=== PATIENT | female | born 1945 ===

== ENCOUNTER 2016-10-25 06:30 | Inpatient (IN) | payer MEDICARE ==
[2016-10-25] MEDS ORDERED: Propofol 10 mg/ml Inj (20 ML) ONE (13:18)
[2016-10-25] MEDS ORDERED: Lidocaine Hydrochloride 5 ML INJ ONE (13:18)
[2016-10-25] MEDS ORDERED: Midazolam 2 MG/2 ML VIAL ONE (13:18)
[2016-10-25] MEDS ORDERED: Rocuronium 10 mg/ml (5 ml) ONE (13:18)
[2016-10-25] MEDS ORDERED: Morphine 1 mg/ml preservative-free Inj(Duramorph) ONE (13:23)
[2016-10-25] MEDS ORDERED: Bacitracin Ointment 30 GM TUBE ONE (13:24)
[2016-10-25] MEDS ORDERED: Bupivacaine 0.5% Inj(30mL) ONE (13:24)
[2016-10-25] MEDS ORDERED: Sodium Chloride 0.9% 20 ML IV ONE (13:24)
[2016-10-25] MEDS ORDERED: EPINEPHrine 1 mg/ml (1:1000) Inj ONE (13:24)
[2016-10-25] MEDS ORDERED: Absorbable Gelatin Sponge Size 100 ONE (13:24)
[2016-10-25] MEDS ORDERED: Thrombin Topical 5,000 IU Spray Kit ONE (13:24)
[2016-10-25] MEDS ORDERED: Lactated Ringer's 1,000 ML IV ONE ×2 (14:40→20:00)
[2016-10-25] MEDS ORDERED: Sodium Chloride 0.9% 1,000 ML IV ONE (14:50)
[2016-10-25] MEDS ORDERED: Sodium Chloride 0.9% Inj (10mL) IV ONE (15:52)
[2016-10-25] MEDS ORDERED: Desflurane Inhalation Anesthetic Liq (240 ml) ONE (15:53)
[2016-10-25] MEDS ORDERED: ePHEDrine 50 mg/ml Inj ONE (15:57)
--- NOTE | 2016-10-25 17:04 | PCM.SURG1 ---
Surgeon's Initial Post Op Note - Surgeon's Notes Surgeon: Alo Ceballos MD Gear Lapper: JEAN MARIE Grubbs Type of Anesthesia: General Endo Pre-Operative Diagnosis: Left Knee Osteoarthritis Operative Findings: see op report Post-Operative Diagnosis: same as pre-op dx Operation Performed: L TKR Specimen/Specimens Removed: Left knee bone and soft tissue Estimated Blood Loss: EBL {In ML}: 200 Date of Surgery/Procedure: 10/25/16 Time of Surgery/Procedure: 15:30
[2016-10-25] MEDS ORDERED: Oxycodone/Acetaminophen 5/325 mg Tab PO PRN (17:07)
--- NOTE | 2016-10-25 17:44 | RAD ---
PROCEDURE: Left Knee Radiographs. HISTORY: Pain. COMPARISON: None. FINDINGS: BONES: Left TKR. Hardware appears intact. Surrounding postoperative changes include infiltration and subcutaneous air. Anterior metallic skin closure ezra. JOINTS: Normal. No osteoarthritis. JOINT EFFUSION: None. OTHER FINDINGS: None. IMPRESSION: Status post left TKR with surrounding expected postoperative changes.
[2016-10-25] MEDS ORDERED: Insulin Regular 100 units/ml SC ONE (18:03)
[2016-10-25] MEDS: HYDROmorphone 0.5 mg/0.5 ml ISec IVP PRN ×3 (18:05→19:38)
[2016-10-25] MEDS ORDERED: ceFAZolin 1 GM in Sodium Chloride 0.9% 100 ML IVPB ONE (23:00)
--- NOTE | 2016-10-25 23:02 | OP ---
PROCEDURE DATE: 10/25/2016 ATTENDING PHYSICIAN: Alo Ceballos MD ONCOLOGY PATIENT NAVIGATOR: Radha Wesley PA-C PREOPERATIVE DIAGNOSIS: Left knee osteoarthritis. POSTOPERATIVE DIAGNOSIS: Left knee osteoarthritis. PROCEDURE: Left total knee replacement. IMPLANTS: [employer] size 3 femur, size 2 tibial baseplate, 13 mm polyethylene insert, 29 mm patella. ESTIMATED BLOOD LOSS: 100 mL. TYPE OF ANESTHESIA: General. COMPLICATIONS: None. HISTORY: The patient with prolonged history of left knee pain progressively getting worse despite extensive conservative management, which included activity modification, injections, anti-inflammatory modification and physical therapy. X-rays had revealed advanced arthritis. Patient was indicated for total knee replacement due to continued pain and limited mobility. I had a detailed discussion with the patient in the office explaining the nature of the surgery, alternatives of surgery, risks and benefits, rehabilitation protocol and surgical markings. Risks of surgery include but not limited to continued pain, lack of motion, infection, vascular injury, DVT / PE, nerve injury including peroneal nerve dysfunction, reflex sympathetic dystrophy, compartment syndrome, unforeseen medical and/or anesthesia complications, limb loss, and even . The patient expressed an understanding of the risks and possible benefits of the procedure, and is also aware of the alternatives to surgery. On the day of the surgery, the patient was admitted to pre-operative holding area. A laterality sheet was completed confirming the correct operative site. The correct surgical knee was marked in the holding area and informed consent was signed from the patient. Once again, I reviewed the risks and benefits of the surgery with the patient in detail. These risks include but are not limited to continued pain, lack of motion, infection, vascular injury, DVT / PE, nerve injury including peroneal nerve dysfunction, reflex sympathetic dystrophy, symptomatic hardware, need for further procedure and surgeries, instability, iatrogenic fractures, compartment syndrome, unforeseen medical and/or anesthesia complications, limb loss, and even . The patient expressed an understanding of the risks and possible benefits of the procedure, also aware of the alternatives to surgery and signed the informed consent. The patient was transported to the operating room and placed in the supine position, general anesthesia was obtained. Exam under anesthesia revealed 5 degree flexion contracture, range of motion 5-100, stable to varus and valgus stress. A padded tourniquet was applied to patient's operative thigh and appropriate prophylactic antibiotics were given. The operative leg was draped and prepped in standard sterile manner. Timeout was completed, confirming patient's left knee to be the correct operative site. Using an Esmarch, the extremity was exsanguinated and tourniquet was inflated to 350 mmHg. The surgical incision markings were made using patella border, tibial tubercle, patella and quadriceps tendon. Using a 10 blade, a midline incision was made. Skin dissection was taken until the prepatellar fascia was identified and the corners of the patellar tendon were marked for proper closure at the end of the procedure. Using a fresh 10 blade, a medial parapatellar arthrotomy was performed. The knee was exposed in the standard manner. The deep MCL was elevated for exposure, medial and lateral menisci were removed, ACL and PCL were also transected. The tibia was subluxed anteriorly. Planned tibial cut was made with power saw, using extra-medullary guide, perpendicular to mechanical axis of the tibia. After the cut was made, the alignment was also checked and was found to be appropriate. Tibial cut surface was measured with trial base plate and it was noted that size 2 tibial baseplate was provide sufficient coverage without overhang. Tibial component was externally rotated and marked. Next, the knee was placed into 90 degrees of flexion. A drill hole was made within the femoral notch anterior to PCL insertion for placement of intramedullary femoral fatemeh. Intramedullary femoral fatemeh was inserted within the femoral canal and planned distal femoral cut was made. After the cut, knee was brought into full extension. Spacer blocks were used to check the extension balancing both in full extension and 30 degrees of flexion. It was found that 13 mm trial spacer block allowed full extension with symmetric varus and valgus balancing. Next we proceed with Patella resurfacing. [place] patella width was 24 mm. Using the free-hand technique the arthritic patella surface was resected. Patella was sized using the guide and it was noted that Patella button size 29 mm. Patella dome button would be appropriate for the patient. Next the size of femoral component was determined using the posterior referencing guide. It was noted that a size 3 femur would be appropriate for this patient without causing any significant notching. A 4 x 1 cutting block was placed and flexion gap balancing was checked. The flexion gap was found to be symmetric to the extension gap. Anterior and posterior condyle, anterior and posterior chamfer cuts were made. Next, appropriate size box cut for femoral component was prepared using the guide. The femoral trial component was impacted onto the distal femur. Appropriate size tibial trial component was also placed on the cut surface of the tibia. Using the drill and punch, keel for tibial implant was prepared. Trial tibial tray was secured onto the tibia using pins. Different size trial polyethylene inserts were secured on to the trial tibial tray to critically assess the following parametes: Full range of motion, extension and flexion gap balancing, mid-flexion stability, anterior and posterior drawer, and patellar tracking. All parameter were found to be satisfactory with 13 mm insert. All the trial components were removed. Implants were opened on the back table. Cement was mixed and we proceed with cement fixation of the implants. Tibial tray, femoral component and patellar dome button were secured with cement. Polyethylene insert was secured onto the tibial tray using locking mechanism. The knee was reduced and brought into full extension. Cement was allowed to harden until final component fixation. Knee was taken through the final range of motion for stability testing, and found to be satisfactory. Upon final cement fixation of all components, it was noted that there is a slight lateral maltracking of the patella. Decision was made to address the patellar maltracking with lateral release. Using the electrocautery, limited lateral prepatellar arthrotomy was performed, which improved patellar tracking. 60 cc of custom cocktail mixture was injected into posterior capsule, MCL, LCL, quadriceps tendon, and patellar tendon. Wound was copiously irrigated with sterile antibiotic solution using pulse lavage. Arthrotomy was closed using heavy suture and wound was closed in standard manner. Patient was extubated, transferred to stretcher and taken to the recovery room. Post-operative instructions were provided, physical therapy consult was requested along with DVT prophylaxis and appropriate pain medications. During this procedure, I was assisted by Radha Wesley PA-C, who assisted in positioning the patient on the operating room table as well as transferring the patient from the operating room table to the recovery room stretcher. In addition, Radha Wesley PA-C, assisted me during the actual operative procedure by positioning, protecting critical neurovascular structures, exposure of the joint, and proper positioning of the implants. The presence of Radha Wesley PA-C, as my operative medical practice assistant was medically necessary to ensure the utmost safety of the patient in the pre, intra-, and post-operative periods. Due to the patient's morbid obesity, this procedure was more difficult than a standard knee arthroscopy. This required extra time during prepping and draping, as well as an extended operative time. The length of the case was prolonged due to these factors by *------*. Due to the patient's previous procedure(s) performed in this area, this procedure was more difficult than a standard knee arthroscopy. This required extra time during prepping and draping, as well as an extended operative time. Because of the added complexity of the revision nature of this procedure, the length of the case was prolonged by 50%. Alo Ceballos MD
[2016-10-25] MEDS: oxyCODONE 20 mg ER Tab (oxyCONTIN) PO SCH (23:11)
[2016-10-26] MEDS ORDERED: Glucagon Recombinant 1 mg Inj IM PRN (05:34)
[2016-10-26] MEDS ORDERED: Dextrose 50% SYRINGE Inj (50 ml) IV PRN (05:34)
[2016-10-26] MEDS: Insulin Regular 100 units/ml SC SCH ×4 (06:38→22:36)
[2016-10-26 06:40] LABS: BASO % 0.3 % (0.0-2.0); HEMOGLOBIN 10.8 g/dL (12.0-16.0); LYMPH # 1.3 K/uL (1.0-4.3); LYMPH % 8.6 % (20.0-40.0); MEAN CELL VOLUME 93.1 fl (81.0-99.0); MEAN CORPUSCULAR HEMOGLOBIN 30.4 pg (27.0-31.0); MEAN CORPUSCULAR HGB CONC 32.7 g/dL (33.0-37.0); MEAN PLATELET VOLUME 9.4 fl (7.2-11.7); MONO # 1.7 K/uL (0.0-0.8); MONO % 10.8 % (0.0-10.0); NEUT # 12.5 K/uL (1.8-7.0); NEUT % 80.3 % (50.0-75.0); NRBC % 0.1 % (0.0-0.0); PLATELET COUNT 198 K/uL (130-400); RBC 3.55 Mil/uL (3.80-5.20); RED CELL DISTRIBUTION WIDTH 14.3 % (11.5-14.5); WHITE BLOOD COUNT 15.6 K/uL (4.8-10.8)
[2016-10-26 06:46] LABS: BLOOD UREA NITROGEN 23 mg/dl (7-17); CALCIUM 8.3 mg/dL (8.4-10.2); GFR AFRICAN-AMERICAN > 60; GFR NON-AFRICAN AMERICAN 55
[2016-10-26] MEDS ORDERED: ceFAZolin 1 GM in Sodium Chloride 0.9% 100 ML IVPB ONE (07:00)
[2016-10-26 08:21] LABS: LYMPHOCYTE 5 % (20-50); MONOCYTE 7 % (0-10); NEUTROPHIL 88 % (42-75); TOTAL CELLS COUNTED 100
[2016-10-26 08:22] LABS: PLATELET ESTIMATE NORMAL (NORMAL)
[2016-10-26] MEDS: oxyCODONE 20 mg ER Tab (oxyCONTIN) PO SCH ×2 (08:42→21:26)
[2016-10-26] MEDS ORDERED: Benzocaine/Menthol (Cepacol) Lozenge PO PRN (09:15)
[2016-10-26] MEDS: Enoxaparin 30 mg Syringe SC SCH ×2 (09:39→21:29)
--- NOTE | 2016-10-26 13:17 | CP.PCM.PN ---
Subjective - Date & Time of Evaluation Date of Evaluation: 10/26/16 Time of Evaluation: 08:10 - Subjective Subjective: S/P LTKR POD#1 Pt seen and examined at bedside, comfortable in bed Pt c/o mild left knee pain Pt denies any SOB, chest pain, N/V/D, numbness/tingling LLE Objective - Vital Signs/Intake and Output Vital Signs (last 24 hours): Temp Pulse Resp BP Pulse Ox 98 F 65 18 140/67 96 10/26/16 08:22 10/26/16 08:43 10/26/16 08:22 10/26/16 10:06 10/26/16 08:22 - Medications Medications: Current Medications Acetaminophen (Tylenol 325mg Tab) 325 mg PO Q4 PRN PRN Reason: pain1-3 Last Admin: 10/26/16 12:25 Dose: 325 mg Amlodipine Besylate (Norvasc) 10 mg PO DAILY [facility] Last Admin: 10/26/16 08:43 Dose: 10 mg Atorvastatin Calcium (Lipitor) 10 mg PO HS [facility] Benzocaine/Menthol (Cepacol Sore Throat) 1 jada PO Q3 PRN PRN Reason: Sore Throat Last Admin: 10/26/16 09:38 Dose: 1 jada Calcium Carbonate (Oscal) 500 mg PO DAILY [facility] Last Admin: 10/26/16 08:44 Dose: 500 mg Celecoxib (Celebrex) 200 mg PO Q12 [facility] Last Admin: 10/26/16 08:43 Dose: 200 mg Dextrose (Dextrose 50% Inj) 0 ml IV STAT PRN; Protocol PRN Reason: Hyglycemia Protocol Dextrose (Glutose 15) 0 gm PO ONCE PRN; Protocol PRN Reason: Hypoglycemia Protocol Docusate Sodium (Colace) 100 mg PO TID [facility] Last Admin: 10/26/16 12:21 Dose: 100 mg Enoxaparin Sodium (Lovenox) 30 mg SC Q12 [facility] PRN Reason: Protocol Last Admin: 10/26/16 09:39 Dose: 30 mg Glucagon (Glucagen Diagnostic Kit) 0 mg IM STAT PRN; Protocol PRN Reason: Hypoglycemia Protocol Hydrochlorothiazide (Hydrodiuril) 25 mg PO DAILY [facility] Last Admin: 10/26/16 08:44 Dose: 25 mg Hydromorphone HCl (Dilaudid) 0.5 mg IVP Q5M PRN PRN Reason: Pain, moderate (4-7) Last Admin: 10/25/16 19:38 Dose: 0.5 mg Insulin Human Regular (Humulin R) 0 units SC ACHS LISA PRN Reason: Protocol Last Admin: 10/26/16 12:21 Dose: 4 units Ketorolac Tromethamine (Toradol) 15 mg IM Q8 [facility] Stop: 10/27/16 05:00 Last Admin: 10/26/16 08:41 Dose: 15 mg Losartan Potassium (Cozaar) 25 mg PO DAILY [facility] Last Admin: 10/26/16 08:44 Dose: 25 mg Metformin HCl (Glucophage) 500 mg PO BIDWM [facility] Last Admin: 10/26/16 08:43 Dose: 500 mg Ondansetron HCl (Zofran Odt) 4 mg PO Q8H PRN PRN Reason: Nausea/Vomiting Oxycodone HCl (Oxycontin Extended Release Tab) 20 mg PO Q12 [facility] Stop: 11/08/16 23:59 Last Admin: 10/26/16 08:42 Dose: 20 mg Oxycodone/Acetaminophen (Percocet 5/325 Mg Tab) 1 tab PO Q4 PRN PRN Reason: pain4-6 Stop: 10/28/16 17:08 - Labs Labs: 10/26/16 05:30 10/26/16 05:30 - Constitutional Appears: Well, No Acute Distress - Respiratory Exam Respiratory Exam: Clear to Ausculation Bilateral, NORMAL BREATHING PATTERN - Cardiovascular Exam Cardiovascular Exam: REGULAR RHYTHM, RRR - Extremities Exam Additional comments: LLE: Knee dressing C/D/I Calves soft and compressible b/l, +ttp left calf N/V intact distally Distal pulses wnl No foot drop Assessment and Plan - Assessment and Plan (Free Text) Assessment: 71 yo F s/p LTKR POD#1 Plan: 71 yo F s/p LTKR POD#1 Pain Control DVT ppx F/U b/l LE US r/o DVT LLE PT/OT WBAT LLE Incentive Spirometer F/U labs Continue current management Discussed with Dr. Ceballos
--- NOTE | 2016-10-26 13:30 | CP.PCM.CON ---
History of Present Illness - History of Present Illness History of Present Illness: 71 y/o F with PMHx of HTN, DM type 2, HLD, and OA admitted for left total knee replacement by Dr. Ceballos. Patient s/p LTKR POD #1. Patient was seen and examined this morning with attending Patient doing well, denies pain at this evaluation, and reports good pain control with meds Denies Cp, SOB, N/V, abdominal pain or other complains. Review of Systems - Review of Systems All systems: reviewed and no additional remarkable complaints except (as per HPI ) Past Patient History - Past Medical History & Family History Past Medical History?: Yes - Past Social History Smoking Status: Never Smoked - CARDIAC Hx Cardiac Disorders: Yes Hx Hypercholesterolemia: Yes Hx Hypertension: Yes - PULMONARY Hx Respiratory Disorders: No - NEUROLOGICAL Hx Neurological Disorder: Yes Hx Transient Ischemic Attacks (TIA): Yes Other/Comment: STROKE - HEENT Hx HEENT Problems: No - RENAL Hx Chronic Kidney Disease: No - ENDOCRINE/METABOLIC Hx Endocrine Disorders: Yes Hx Diabetes Mellitus Type 1: Yes Hx Diabetes Mellitus Type 2: Yes - HEMATOLOGICAL/ONCOLOGICAL Hx Blood Disorders: No Hx Anemia: No Hx Blood Transfusions: No Hx Cancer: Yes (LEFT BREAST CANCER-WITH RADIATION) Other/Comment: Hx: radiation - INTEGUMENTARY Hx Dermatological Problems: No - MUSCULOSKELETAL/RHEUMATOLOGICAL Hx Musculoskeletal Disorders: Yes Hx Arthritis: Yes Hx Back Pain: No Hx Falls: No Hx Fractures: Yes (right ankle) Hx Osteoarthritis: Yes - GASTROINTESTINAL Hx Gastrointestinal Disorders: No - GENITOURINARY/GYNECOLOGICAL Hx Genitourinary Disorders: No - PSYCHIATRIC Hx Psychophysiologic Disorder: No Hx Emotional Abuse: No Hx Physical Abuse: No Hx Substance Use: No - SURGICAL HISTORY Hx Surgeries: Yes Hx Breast Biopsy: Yes Hx Open Reduction Internal Fixation: Yes (right ankle) Hx Orthopedic Surgery: Yes (rt foot has a fatemeh from sx 1987) Other/Comment: LEFT BREAST BIOPSY;RIGHT LEG SURGERY-BROKEN - ANESTHESIA Hx Anesthesia: Yes Hx Anesthesia Reactions: No Hx Malignant Hyperthermia: No Has any member of the family had a problem w/ anesthesia?: No Meds Allergies/Adverse Reactions: Allergies Allergy/AdvReac Type Severity Reaction Status Date / Time No Known Allergies Allergy Verified 10/14/15 20:29 - Medications Medications: Current Medications Acetaminophen (Tylenol 325mg Tab) 325 mg PO Q4 PRN PRN Reason: pain1-3 Last Admin: 10/26/16 12:25 Dose: 325 mg Amlodipine Besylate (Norvasc) 10 mg PO DAILY [facility] Last Admin: 10/26/16 08:43 Dose: 10 mg Atorvastatin Calcium (Lipitor) 10 mg PO HS [facility] Benzocaine/Menthol (Cepacol Sore Throat) 1 jada PO Q3 PRN PRN Reason: Sore Throat Last Admin: 10/26/16 09:38 Dose: 1 jada Calcium Carbonate (Oscal) 500 mg PO DAILY [facility] Last Admin: 10/26/16 08:44 Dose: 500 mg Celecoxib (Celebrex) 200 mg PO Q12 [facility] Last Admin: 10/26/16 08:43 Dose: 200 mg Dextrose (Dextrose 50% Inj) 0 ml IV STAT PRN; Protocol PRN Reason: Hyglycemia Protocol Dextrose (Glutose 15) 0 gm PO ONCE PRN; Protocol PRN Reason: Hypoglycemia Protocol Docusate Sodium (Colace) 100 mg PO TID [facility] Last Admin: 10/26/16 12:21 Dose: 100 mg Enoxaparin Sodium (Lovenox) 30 mg SC Q12 [facility] PRN Reason: Protocol Last Admin: 10/26/16 09:39 Dose: 30 mg Glucagon (Glucagen Diagnostic Kit) 0 mg IM STAT PRN; Protocol PRN Reason: Hypoglycemia Protocol Hydrochlorothiazide (Hydrodiuril) 25 mg PO DAILY [facility] Last Admin: 10/26/16 08:44 Dose: 25 mg Hydromorphone HCl (Dilaudid) 0.5 mg IVP Q5M PRN PRN Reason: Pain, moderate (4-7) Last Admin: 10/25/16 19:38 Dose: 0.5 mg Insulin Human Regular (Humulin R) 0 units SC [facility] PRN Reason: Protocol Last Admin: 10/26/16 12:21 Dose: 4 units Ketorolac Tromethamine (Toradol) 15 mg IM Q8 [facility] Stop: 10/27/16 05:00 Last Admin: 10/26/16 08:41 Dose: 15 mg Losartan Potassium (Cozaar) 25 mg PO DAILY [facility] Last Admin: 10/26/16 08:44 Dose: 25 mg Metformin HCl (Glucophage) 500 mg PO BIDWM [facility] Last Admin: 10/26/16 08:43 Dose: 500 mg Ondansetron HCl (Zofran Odt) 4 mg PO Q8H PRN PRN Reason: Nausea/Vomiting Oxycodone HCl (Oxycontin Extended Release Tab) 20 mg PO Q12 [facility] Stop: 11/08/16 23:59 Last Admin: 10/26/16 08:42 Dose: 20 mg Oxycodone/Acetaminophen (Percocet 5/325 Mg Tab) 1 tab PO Q4 PRN PRN Reason: pain4-6 Stop: 10/28/16 17:08 Physical Exam - Constitutional Appears: No Acute Distress - ENT Exam ENT Exam: Mucous Membranes Moist - Respiratory Exam Respiratory Exam: Clear to Auscultation Bilateral, NORMAL BREATHING PATTERN - Cardiovascular Exam Cardiovascular Exam: REGULAR RHYTHM, +S1, +S2 - GI/Abdominal Exam GI & Abdominal Exam: Normal Bowel Sounds, Soft. absent: Distended, Firm, Tenderness - Extremities Exam Extremities exam: Positive for: normal inspection. Negative for: calf tenderness, pedal edema - Neurological Exam Neurological exam: Alert, Oriented x3 - Skin Skin Exam: Dry, Intact, Normal Color Results - Vital Signs Recent Vital Signs: Last Vital Signs Temp 98 F 10/26/16 08:22 Pulse 65 10/26/16 08:43 Resp 18 10/26/16 08:22 BP 140/67 10/26/16 10:06 Pulse Ox 96 10/26/16 08:22 - Labs Result Diagrams: 10/26/16 05:30 10/26/16 05:30 Labs: Laboratory Results - last 24 hr 10/25/16 10/25/16 10/25/16 07:15 17:54 19:02 WBC RBC Hgb Hct MCV MCH MCHC RDW Plt Count MPV Neut % (Auto) Lymph % (Auto) [place] % (Auto) Eos % (Auto) Baso % (Auto) Neut # Lymph # [place] # Eos # Baso # Neutrophils % (Manual) Lymphocytes % (Manual) Monocytes % (Manual) Platelet Estimate Sodium Potassium Chloride Carbon Dioxide Anion Gap BUN Creatinine Est GFR ( Amer) Est GFR (Non-Af Amer) POC Glucose (mg/dL) 299 H 276 H Random Glucose Calcium Blood Type O POSITIVE Antibody Screen Negative Crossmatch See Detail BBK History Checked Patient has bt 10/25/16 10/26/16 10/26/16 20:49 05:22 05:30 WBC 15.6 H RBC 3.55 L Hgb 10.8 L Hct 33.1 L MCV 93.1 MCH 30.4 MCHC 32.7 L RDW 14.3 Plt Count 198 MPV 9.4 Neut % (Auto) 80.3 H Lymph % (Auto) 8.6 L [place] % (Auto) 10.8 H Eos % (Auto) 0.0 Baso % (Auto) 0.3 Neut # 12.5 H Lymph # 1.3 [place] # 1.7 H Eos # 0.0 Baso # 0.0 Neutrophils % (Manual) 88 H Lymphocytes % (Manual) 5 L Monocytes % (Manual) 7 Platelet Estimate Normal Sodium Potassium Chloride Carbon Dioxide Anion Gap BUN Creatinine Est GFR ( Amer) Est GFR (Non-Af Amer) POC Glucose (mg/dL) 242 H 218 H Random Glucose Calcium Blood Type Antibody Screen Crossmatch BBK History Checked 10/26/16 10/26/16 05:30 10:57 WBC RBC Hgb Hct MCV MCH MCHC RDW Plt Count MPV Neut % (Auto) Lymph % (Auto) [place] % (Auto) Eos % (Auto) Baso % (Auto) Neut # Lymph # [place] # Eos # Baso # Neutrophils % (Manual) Lymphocytes % (Manual) Monocytes % (Manual) Platelet Estimate Sodium 139 Potassium 3.7 Chloride 101 Carbon Dioxide 25 Anion Gap 16 BUN 23 H Creatinine 1.0 Est GFR ( Amer) > 60 Est GFR (Non-Af Amer) 55 POC Glucose (mg/dL) 281 H Random Glucose 187 H Calcium 8.3 L Blood Type Antibody Screen Crossmatch BBK History Checked Assessment & Plan - Assessment and Plan (Free Text) Assessment: 71 y/o F s/p LTKR POD #1. Plan: S/p LTKR POD #1 -c/w pain control -PT evaluation and Tx -f/u CBC, BMP in AM -c/w Ancef x 3 doses, then consider DC -consider post-operative DVT prophylaxis. F/u Ortho recommendation DM type 2 c/w home medications f/u accucheck daily start diabetic diet as tolerated HTN -c/w home meds -C/w BP monitoring Hyperlipidemia -c/w home meds DVT prophylaxis SCDs for now - Date & Time Date: 10/26/16 Time: 09:00
--- NOTE | 2016-10-26 18:05 | US ---
PROCEDURE: Bilateral lower extremity venous duplex Doppler. HISTORY: calf pain COMPARISON: None available. TECHNIQUE: Bilateral common femoral, superficial femoral, popliteal and posterior tibial veins were evaluated. Flow was assessed with color Doppler, compressibility, assessment of phasic flow and augmentation response. FINDINGS: COMMON FEMORAL VEIN: Right CFV: Unremarkable. Left CFV: Unremarkable. SUPERFICIAL FEMORAL VEIN: Right SFV: Unremarkable. Left SFV: Unremarkable. POPLITEAL VEIN: Right Popliteal: Unremarkable. Left Popliteal: Unremarkable. POSTERIOR TIBIAL VEIN: Right PTV: Unremarkable. Left PTV: Unremarkable. OTHER FINDINGS: None. IMPRESSION: No evidence of deep venous thrombosis.
[2016-10-27 06:07] LABS: CALCIUM 8.6 mg/dL (8.4-10.2)
[2016-10-27 06:14] LABS: BASO # 0.1 K/uL (0.0-0.2); BASO % 0.5 % (0.0-2.0); EOS # 0.1 K/uL (0.0-0.7); EOS % 1.4 % (0.0-4.0); HEMOGLOBIN 9.6 g/dL (12.0-16.0); LYMPH # 2.2 K/uL (1.0-4.3); LYMPH % 22.9 % (20.0-40.0); MEAN CELL VOLUME 92.7 fl (81.0-99.0); MEAN CORPUSCULAR HEMOGLOBIN 30.8 pg (27.0-31.0); MEAN CORPUSCULAR HGB CONC 33.2 g/dL (33.0-37.0); MEAN PLATELET VOLUME 9.4 fl (7.2-11.7); MONO # 1.1 K/uL (0.0-0.8); MONO % 11.9 % (0.0-10.0); NEUT % 63.3 % (50.0-75.0); RBC 3.14 Mil/uL (3.80-5.20); RED CELL DISTRIBUTION WIDTH 14.4 % (11.5-14.5); WHITE BLOOD COUNT 9.4 K/uL (4.8-10.8)
[2016-10-27] MEDS: Insulin Regular 100 units/ml SC SCH ×3 (06:46→16:34)
[2016-10-27] MEDS: oxyCODONE 20 mg ER Tab (oxyCONTIN) PO SCH (08:30)
[2016-10-27] MEDS: Enoxaparin 30 mg Syringe SC SCH (08:31)
[2016-10-27] MEDS ORDERED: Potassium Chloride 20 mEq ER Tab PO ONE (09:40)
[2016-10-27] MEDS ORDERED: Sodium Chloride 0.9% 1,000 ML IV SCH (09:45)
--- NOTE | 2016-10-27 16:20 | CP.PCM.PN ---
Subjective - Date & Time of Evaluation Date of Evaluation: 10/27/16 Time of Evaluation: 09:05 - Subjective Subjective: patient seen and examined with attending still reporting pain, but is controlled with medications passing flatus, but has not yet had a BM tolerating PO Afebrile Denies Cp, SOB, N/V, abdominal pain, numbness/tingling LLE Objective - Vital Signs/Intake and Output Vital Signs (last 24 hours): Temp Pulse Resp BP Pulse Ox 98.4 F 79 18 100/63 93 L 10/27/16 07:39 10/27/16 07:39 10/27/16 07:39 10/27/16 07:39 10/27/16 07:39 - Medications Medications: Current Medications Acetaminophen (Tylenol 325mg Tab) 325 mg PO Q4 PRN PRN Reason: pain1-3 Last Admin: 10/26/16 12:25 Dose: 325 mg Amlodipine Besylate (Norvasc) 10 mg PO DAILY [facility] Last Admin: 10/27/16 08:33 Dose: 10 mg Atorvastatin Calcium (Lipitor) 10 mg PO HS [facility] Last Admin: 10/26/16 22:38 Dose: Not Given Benzocaine/Menthol (Cepacol Sore Throat) 1 jada PO Q3 PRN PRN Reason: Sore Throat Last Admin: 10/26/16 09:38 Dose: 1 jada Calcium Carbonate (Oscal) 500 mg PO DAILY [facility] Last Admin: 10/27/16 08:33 Dose: 500 mg Celecoxib (Celebrex) 200 mg PO Q12 [facility] Last Admin: 10/27/16 08:31 Dose: 200 mg Dextrose (Dextrose 50% Inj) 0 ml IV STAT PRN; Protocol PRN Reason: Hyglycemia Protocol Dextrose (Glutose 15) 0 gm PO ONCE PRN; Protocol PRN Reason: Hypoglycemia Protocol Docusate Sodium (Colace) 100 mg PO TID [facility] Last Admin: 10/27/16 12:01 Dose: 100 mg Enoxaparin Sodium (Lovenox) 30 mg SC Q12 [facility] PRN Reason: Protocol Last Admin: 10/27/16 08:31 Dose: 30 mg Famotidine (Pepcid) 20 mg PO Q12 [facility] Last Admin: 10/27/16 08:33 Dose: 20 mg Glucagon (Glucagen Diagnostic Kit) 0 mg IM STAT PRN; Protocol PRN Reason: Hypoglycemia Protocol Hydrochlorothiazide (Hydrodiuril) 25 mg PO DAILY [facility] Last Admin: 10/27/16 08:33 Dose: 25 mg Hydromorphone HCl (Dilaudid) 0.5 mg IVP Q5M PRN PRN Reason: Pain, moderate (4-7) Last Admin: 10/25/16 19:38 Dose: 0.5 mg Sodium Chloride (Sodium Chloride 0.9%) 1,000 mls @ 75 mls/hr IV .[id number] [facility] Stop: 10/28/16 09:41 Last Admin: 10/27/16 11:57 Dose: 75 mls/hr Insulin Human Regular (Humulin R) 0 units SC ACHS [facility] PRN Reason: Protocol Last Admin: 10/27/16 11:56 Dose: 4 units Ketorolac Tromethamine (Toradol) 15 mg IVP Q6 PRN PRN Reason: Pain, moderate (4-7) Last Admin: 10/26/16 20:13 Dose: 15 mg Losartan Potassium (Cozaar) 25 mg PO DAILY [facility] Last Admin: 10/27/16 08:32 Dose: 25 mg Metformin HCl (Glucophage) 500 mg PO BIDWM [facility] Last Admin: 10/27/16 08:32 Dose: 500 mg Ondansetron HCl (Zofran Inj) 4 mg IVP Q6 PRN PRN Reason: Nausea/Vomiting Oxycodone HCl (Oxycontin Extended Release Tab) 20 mg PO Q12 [facility] Stop: 11/08/16 23:59 Last Admin: 10/27/16 08:30 Dose: 20 mg Oxycodone/Acetaminophen (Percocet 5/325 Mg Tab) 1 tab PO Q4 PRN PRN Reason: pain4-6 Stop: 10/28/16 17:08 Last Admin: 10/26/16 13:45 Dose: 1 tab - Labs Labs: 10/27/16 04:35 10/27/16 04:35 - Additional Findings Additional findings: Constitutional Appears: No Acute Distress - ENT Exam ENT Exam: Mucous Membranes Moist - Respiratory Exam Respiratory Exam: Clear to Auscultation Bilateral, NORMAL BREATHING PATTERN - Cardiovascular Exam Cardiovascular Exam: REGULAR RHYTHM, +S1, +S2 - GI/Abdominal Exam GI & Abdominal Exam: Normal Bowel Sounds, Soft. absent: Distended, Firm, Tenderness - Extremities Exam Extremities exam: Positive for: normal inspection. Negative for: calf tenderness, pedal edema - Neurological Exam Neurological exam: Alert, Oriented x3 - Skin Skin Exam: Dry, Intact, Normal Color Assessment and Plan - Assessment and Plan (Free Text) Assessment: 71 y/o F s/p LTKR POD #2 Plan: S/p LTKR POD #1 -c/w pain control -c/w stool softener -PT evaluation and Tx - CBC: no leukocytosis, H/H: slightly decreased 9.6/29.1 -dupplex US of LE showed no evidence of DVT DM type 2 c/w home medications f/u accucheck daily c/w diabetic diet HTN -c/w home meds -C/w BP monitoring Hyperlipidemia -c/w home meds DVT prophylaxis SCDs c/w lovenox 30 mg SC BID
[2016-10-27 16:29] VITALS: BP 113/68; PULSE 84; RESP 17; TEMP 98.3; O2SAT 92
[2016-10-27 21:02] VITALS: BMI 39.6
== END 2016-10-27 18:42 | DRG 470 ==
LOC: H.OPSURG 06:30 → H.MEDSURG1 17:17
PROVIDERS: ADMIT Family Medicine; ATTEND Family Medicine
PROC: 0SRD0J9 Replacement of Left Knee Joint with Synthetic Substitute, Cemented, Open Approach (ICD-10-PCS; principal; 2016-10-25 13:45)
DX: M17.12 Unilateral primary osteoarthritis, left knee (principal); E11.9 Type 2 diabetes mellitus without complications; E66.01 Morbid (severe) obesity due to excess calories; I10 Essential (primary) hypertension; Z68.39 Body mass index [BMI] 39.0-39.9, adult; E78.5 Hyperlipidemia, unspecified; E78.00 Pure hypercholesterolemia, unspecified; Z86.73 Personal history of transient ischemic attack (TIA), and cerebral infarction without residual deficits; Z79.4 Long term (current) use of insulin; Z85.3 Personal history of malignant neoplasm of breast; Z92.3 Personal history of irradiation

== ENCOUNTER 2016-10-27 15:03 | Inpatient (IN) | payer MEDICARE ==
[2016-10-27 18:57] VITALS: BMI 39.6
[2016-10-27] MEDS ORDERED: Benzocaine/Menthol (Cepacol) Lozenge PO PRN (21:44)
[2016-10-27] MEDS ORDERED: Dextrose 50% SYRINGE Inj (50 ml) IVP PRN (21:45)
[2016-10-27] MEDS ORDERED: Glucagon Recombinant 1 mg Inj IM ONE (21:47)
[2016-10-27] MEDS: Insulin Regular 100 units/ml SC SCH (23:02)
[2016-10-27] MEDS: Enoxaparin 30 mg Syringe SC SCH (23:10)
[2016-10-27] MEDS: Oxycodone/Acetaminophen 5/325 mg Tab PO PRN (23:10)
[2016-10-28 02:49] VITALS: RESP 20
[2016-10-28] MEDS: Insulin Regular 100 units/ml SC SCH ×4 (07:16→22:37)
[2016-10-28] MEDS ORDERED: METFORMIN 500 MG PO SCH (08:00)
[2016-10-28] MEDS: Enoxaparin 30 mg Syringe SC SCH ×2 (08:32→21:28)
[2016-10-28] MEDS: oxyCODONE 20 mg ER Tab (oxyCONTIN) PO SCH ×2 (08:36→21:33)
--- NOTE | 2016-10-28 08:58 | CP.PCM.PN ---
Subjective - Date & Time of Evaluation Date of Evaluation: 10/28/16 Time of Evaluation: 08:30 - Subjective Subjective: S/P LTKR POD#3 Pt seen and examined at bedside, comfortable in bed Pt c/o mild left knee pain, well controlled with pain meds Pt denies any SOB, chest pain, N/V/D, numbness/tingling LLE Objective - Vital Signs/Intake and Output Vital Signs (last 24 hours): Temp Pulse Resp BP Pulse Ox 98.2 F 79 20 117/63 88 L 10/28/16 08:03 10/28/16 08:30 10/28/16 08:03 10/28/16 08:30 10/28/16 08:03 - Medications Medications: Current Medications Acetaminophen (Tylenol 325mg Tab) 325 mg PO Q4 PRN PRN Reason: pain1-3 Amlodipine Besylate (Norvasc) 10 mg PO DAILY [facility] Last Admin: 10/28/16 08:30 Dose: 10 mg Atorvastatin Calcium (Lipitor) 10 mg PO HS [facility] Last Admin: 10/27/16 23:09 Dose: 10 mg Benzocaine/Menthol (Cepacol Sore Throat) 1 jada PO Q3 PRN PRN Reason: Sore Throat Calcium Carbonate (Oscal) 500 mg PO DAILY [facility] Last Admin: 10/28/16 08:29 Dose: 500 mg Celecoxib (Celebrex) 200 mg PO Q12 [facility] Last Admin: 10/28/16 08:29 Dose: 200 mg Dextrose (Dextrose 50% Inj) 50 ml IVP ONCE PRN PRN Reason: Hypoglycemia Dextrose (Glutose 15) 15 gm PO ONCE PRN PRN Reason: Hypoglycemia Docusate Sodium (Colace) 100 mg PO TID [facility] Last Admin: 10/28/16 08:32 Dose: 100 mg Enoxaparin Sodium (Lovenox) 30 mg SC Q12 [facility] PRN Reason: Protocol Last Admin: 10/28/16 08:32 Dose: 30 mg Famotidine (Pepcid) 20 mg PO Q12 [facility] Last Admin: 10/28/16 08:31 Dose: 20 mg Hydrochlorothiazide (Hydrodiuril) 25 mg PO DAILY [facility] Last Admin: 10/28/16 08:32 Dose: 25 mg Insulin Human Regular (Humulin R) 0 units SC ACHS [facility] PRN Reason: Protocol Last Admin: 10/28/16 07:16 Dose: 1 unit Losartan Potassium (Cozaar) 25 mg PO DAILY [facility] Last Admin: 10/28/16 08:30 Dose: 25 mg Metformin HCl (Glucophage) 500 mg PO BIDWM [facility] Last Admin: 10/28/16 08:29 Dose: 500 mg Oxycodone HCl (Oxycontin Extended Release Tab) 20 mg PO Q12 [facility] Last Admin: 10/28/16 08:36 Dose: 20 mg Oxycodone/Acetaminophen (Percocet 5/325 Mg Tab) 1 tab PO Q4 PRN PRN Reason: pain4-6 Stop: 10/30/16 21:21 Last Admin: 10/27/16 23:10 Dose: 1 tab Sennosides (Senokot Tab) 17.2 mg PO HS [facility] - Constitutional Appears: Well, No Acute Distress - Respiratory Exam Respiratory Exam: Clear to Ausculation Bilateral, NORMAL BREATHING PATTERN - Cardiovascular Exam Cardiovascular Exam: REGULAR RHYTHM, RRR - Extremities Exam Additional comments: LLE: Knee dressing C/D/I Calves soft and compressible b/l, mild ttp left calf N/V intact distally Distal pulses wnl No foot drop Assessment and Plan - Assessment and Plan (Free Text) Assessment: 71 yo F s/p LTKR POD#3 Plan: S/P LTKR POD#3 Pain Control DVT ppx US b/l LE neg for any DVT Incentive Spirometer PT/OT Continue current management Discussed with Dr. Ceballos
[2016-10-28] MEDS ORDERED: HYDROCHLOROTHIAZIDE 25 MG PO SCH (09:00)
[2016-10-28] MEDS ORDERED: [UNRECOGNIZED DRUG - OTHER] PO SCH (09:00)
--- NOTE | 2016-10-28 09:49 | CP.PCM.HP ---
History of Present Illness - History of Present Illness History of Present Illness: This is a 71 y/o female admitted from the medical floor after a right TKR. Post op period was unremarkable. patient has a hx of HTN DM 2 and hyperlipid She has been suffering from progressive knee pain for sometime. She is currently on po meds for DM 2. Venous US of lower extremities the other day was normal. Present on Admission - Present on Admission Any Indicators Present on Admission: No History of Uncontrolled Diabetes: Yes Urinary Catheter: No Decubitus Ulcer Present: No Review of Systems - Musculoskeletal Musculoskeletal: Abnormal Gait, Joint Swelling Past Patient History - Past Medical History & Family History Past Medical History?: Yes - Past Social History Smoking Status: Never Smoked - CARDIAC Hx Cardiac Disorders: Yes Hx Hypercholesterolemia: Yes Hx Hypertension: Yes - PULMONARY Hx Respiratory Disorders: No - NEUROLOGICAL Hx Neurological Disorder: Yes Hx Transient Ischemic Attacks (TIA): Yes Other/Comment: STROKE - HEENT Hx HEENT Problems: No - RENAL Hx Chronic Kidney Disease: No - ENDOCRINE/METABOLIC Hx Endocrine Disorders: Yes Hx Diabetes Mellitus Type 1: Yes Hx Diabetes Mellitus Type 2: Yes - HEMATOLOGICAL/ONCOLOGICAL Hx Blood Disorders: No Hx Anemia: No Hx Blood Transfusions: No Hx Cancer: Yes (LEFT BREAST CANCER-WITH RADIATION) Other/Comment: Hx: radiation - INTEGUMENTARY Hx Dermatological Problems: No - MUSCULOSKELETAL/RHEUMATOLOGICAL Hx Falls: No Hx Osteoarthritis: Yes Hx Unsteady Gait: Yes - GASTROINTESTINAL Hx Gastrointestinal Disorders: No - GENITOURINARY/GYNECOLOGICAL Hx Genitourinary Disorders: No - PSYCHIATRIC Hx Substance Use: No - SURGICAL HISTORY Hx Surgeries: Yes Hx Breast Biopsy: Yes Hx Joint Replacement: Yes (ltkr 10/25/16) Hx Open Reduction Internal Fixation: Yes (right ankle) Hx Orthopedic Surgery: Yes (rt foot has a fatemeh from sx 1987) Other/Comment: LEFT BREAST BIOPSY;RIGHT LEG SURGERY-BROKEN - ANESTHESIA Hx Anesthesia: Yes Hx Anesthesia Reactions: No Hx Malignant Hyperthermia: No Meds Allergies/Adverse Reactions: Allergies Allergy/AdvReac Type Severity Reaction Status Date / Time No Known Allergies Allergy Verified 10/27/16 21:00 Physical Exam - Head Exam Head Exam: NORMAL INSPECTION - Eye Exam Eye Exam: Normal appearance - ENT Exam ENT Exam: Mucous Membranes Moist - Respiratory Exam Respiratory Exam: Clear to Auscultation Bilateral - Cardiovascular Exam Cardiovascular Exam: REGULAR RHYTHM - GI/Abdominal Exam GI & Abdominal Exam: Normal Bowel Sounds - Extremities Exam Extremities exam: Positive for: joint swelling Additional comments: periwound swelling - Neurological Exam Neurological exam: CN II-XII Intact - Psychiatric Exam Psychiatric exam: Normal Mood Results - Vital Signs Recent Vital Signs: Last Vital Signs Temp 98.2 F 10/28/16 08:03 Pulse 79 10/28/16 08:30 Resp 20 10/28/16 08:03 BP 117/63 10/28/16 08:30 Pulse Ox 88 L 10/28/16 08:03 - Labs Result Diagrams: 11/03/16 05:50 11/03/16 05:50 Labs: Laboratory Results - last 24 hr 10/27/16 10/28/16 21:34 06:40 POC Glucose (mg/dL) 189 H 195 H Assessment & Plan (1) Gait difficulty Status: Acute (2) Status post total knee replacement, left Status: Acute (3) Diabetes mellitus type 2 in obese Status: Acute (4) Hypertension Status: Acute (5) Hyperlipidemia Status: Acute - Assessment and Plan (Free Text) Plan: Cont pain meds start Phys therapy accucheck adjust po meds for DM
[2016-10-28] MEDS: Oxycodone/Acetaminophen 5/325 mg Tab PO PRN (15:28)
[2016-10-29] MEDS: Insulin Regular 100 units/ml SC SCH ×4 (06:57→22:19)
[2016-10-29] MEDS: oxyCODONE 20 mg ER Tab (oxyCONTIN) PO SCH ×2 (10:38→22:18)
[2016-10-29] MEDS: Enoxaparin 30 mg Syringe SC SCH ×2 (10:39→22:19)
[2016-10-29] MEDS: Oxycodone/Acetaminophen 5/325 mg Tab PO PRN (13:31)
[2016-10-30] MEDS: Insulin Regular 100 units/ml SC SCH ×4 (07:05→22:12)
[2016-10-30] MEDS: Oxycodone/Acetaminophen 5/325 mg Tab PO PRN (07:08)
[2016-10-30] MEDS: oxyCODONE 20 mg ER Tab (oxyCONTIN) PO SCH ×2 (09:15→22:05)
[2016-10-30] MEDS: Enoxaparin 30 mg Syringe SC SCH ×2 (09:17→22:06)
--- NOTE | 2016-10-30 11:21 | CP.PCM.PN ---
Subjective - Date & Time of Evaluation Date of Evaluation: 10/29/16 Time of Evaluation: 09:30 - Subjective Subjective: Patient remains stable Has minimal pain on the left knee but noted decrease in swelling. Has no feverDoing well with PT. Objective - Vital Signs/Intake and Output Vital Signs (last 24 hours): Temp Pulse Resp BP Pulse Ox 97.7 F 79 20 154/74 H 100 10/30/16 08:28 10/30/16 09:16 10/30/16 08:28 10/30/16 09:16 10/30/16 08:28 - Medications Medications: Current Medications Acetaminophen (Tylenol 325mg Tab) 325 mg PO Q4 PRN PRN Reason: pain1-3 Amlodipine Besylate (Norvasc) 10 mg PO DAILY [facility] Last Admin: 10/30/16 09:16 Dose: 10 mg Atorvastatin Calcium (Lipitor) 10 mg PO HS [facility] Last Admin: 10/29/16 22:19 Dose: 10 mg Benzocaine/Menthol (Cepacol Sore Throat) 1 jada PO Q3 PRN PRN Reason: Sore Throat Calcium Carbonate (Oscal) 500 mg PO DAILY [facility] Last Admin: 10/30/16 09:17 Dose: 500 mg Celecoxib (Celebrex) 200 mg PO Q12 [facility] Last Admin: 10/30/16 09:15 Dose: 200 mg Dextrose (Dextrose 50% Inj) 50 ml IVP ONCE PRN PRN Reason: Hypoglycemia Dextrose (Glutose 15) 15 gm PO ONCE PRN PRN Reason: Hypoglycemia Docusate Sodium (Colace) 100 mg PO TID [facility] Last Admin: 10/30/16 09:15 Dose: 100 mg Enoxaparin Sodium (Lovenox) 30 mg SC Q12 [facility] PRN Reason: Protocol Last Admin: 10/30/16 09:17 Dose: 30 mg Famotidine (Pepcid) 20 mg PO Q12 [facility] Last Admin: 10/30/16 09:16 Dose: 20 mg Hydrochlorothiazide (Hydrodiuril) 25 mg PO DAILY [facility] Last Admin: 10/30/16 09:16 Dose: 25 mg Insulin Human Regular (Humulin R) 0 units SC ACHS [facility] PRN Reason: Protocol Last Admin: 10/30/16 07:05 Dose: 1 unit Losartan Potassium (Cozaar) 25 mg PO DAILY [facility] Last Admin: 10/30/16 09:16 Dose: 25 mg Metformin HCl (Glucophage) 500 mg PO BIDWM [facility] Last Admin: 10/30/16 09:15 Dose: 500 mg Oxycodone HCl (Oxycontin Extended Release Tab) 20 mg PO Q12 [facility] Last Admin: 10/30/16 09:15 Dose: 20 mg Oxycodone/Acetaminophen (Percocet 5/325 Mg Tab) 1 tab PO Q4 PRN PRN Reason: pain4-6 Stop: 10/30/16 21:21 Last Admin: 10/30/16 07:08 Dose: 1 tab Sennosides (Senokot Tab) 17.2 mg PO HS [facility] Last Admin: 10/29/16 22:24 Dose: Not Given - Head Exam Head Exam: NORMAL INSPECTION - Eye Exam Eye Exam: Normal appearance - ENT Exam ENT Exam: Mucous Membranes Moist - Respiratory Exam Respiratory Exam: Clear to Ausculation Bilateral - Cardiovascular Exam Cardiovascular Exam: REGULAR RHYTHM - GI/Abdominal Exam GI & Abdominal Exam: Normal Bowel Sounds - Neurological Exam Neurological Exam: CN II-XII Intact, Oriented x3 Assessment and Plan (1) Status post total knee replacement, left Status: Acute (2) Diabetes mellitus type 2 in obese Status: Acute (3) Gait difficulty Status: Acute (4) Hyperlipidemia Status: Acute (5) Hypertension Status: Acute - Assessment and Plan (Free Text) Plan: on meds cont tx Cont PT adjust po meds.
[2016-10-31] MEDS: Insulin Regular 100 units/ml SC SCH ×2 (07:32→12:37)
[2016-10-31] MEDS: oxyCODONE 20 mg ER Tab (oxyCONTIN) PO SCH ×2 (09:50→20:06)
[2016-10-31] MEDS: Enoxaparin 30 mg Syringe SC SCH ×2 (09:51→20:06)
--- NOTE | 2016-10-31 17:49 | CP.PCM.CON ---
History of Present Illness - History of Present Illness History of Present Illness: Dr Gregory PMR consultation on Mi Cheney, born 1945, who has been admitted to the [facility] TCU following a left TKR by Dr Ceballos, post op feels good with minimal pain at this point. Failed conservative care Review of Systems - Constitutional Constitutional: absent: Anorexia, Chills - EENT Eyes: absent: Blurred Vision Ears: absent: Ear Discharge Nose/Mouth/Throat: absent: Nasal Congestion - Cardiovascular Cardiovascular: absent: Chest Pain - Respiratory Respiratory: absent: Dyspnea, Hemoptysis - Gastrointestinal Gastrointestinal: absent: Belching, Constipation - Musculoskeletal Musculoskeletal: Limited Range of Motion (as expected following a TKR) - Neurological Neurological: absent: Abnormal Hearing, Abnormal Movements, Confusion Past Patient History - Past Medical History & Family History Past Medical History?: Yes - Past Social History Smoking Status: Never Smoked Alcohol: None Drugs: Denies Home Situation {Lives}: Alone (elevator) - CARDIAC Hx Cardiac Disorders: Yes Hx Hypercholesterolemia: Yes Hx Hypertension: Yes - PULMONARY Hx Respiratory Disorders: No - NEUROLOGICAL Hx Neurological Disorder: Yes Hx Transient Ischemic Attacks (TIA): Yes Other/Comment: STROKE - HEENT Hx HEENT Problems: No - RENAL Hx Chronic Kidney Disease: No - ENDOCRINE/METABOLIC Hx Endocrine Disorders: Yes Hx Diabetes Mellitus Type 1: Yes Hx Diabetes Mellitus Type 2: Yes - HEMATOLOGICAL/ONCOLOGICAL Hx Blood Disorders: No Hx Anemia: No Hx Blood Transfusions: No Hx Cancer: Yes (LEFT BREAST CANCER-WITH RADIATION) Other/Comment: Hx: radiation - INTEGUMENTARY Hx Dermatological Problems: No - MUSCULOSKELETAL/RHEUMATOLOGICAL Hx Falls: No Hx Osteoarthritis: Yes Hx Unsteady Gait: Yes - GASTROINTESTINAL Hx Gastrointestinal Disorders: No - GENITOURINARY/GYNECOLOGICAL Hx Genitourinary Disorders: No - PSYCHIATRIC Hx Substance Use: No - SURGICAL HISTORY Hx Surgeries: Yes Hx Breast Biopsy: Yes Hx Joint Replacement: Yes (ltkr 10/25/16) Hx Open Reduction Internal Fixation: Yes (right ankle) Hx Orthopedic Surgery: Yes (rt foot has a fatemeh from sx 1987) Other/Comment: LEFT BREAST BIOPSY;RIGHT LEG SURGERY-BROKEN - ANESTHESIA Hx Anesthesia: Yes Hx Anesthesia Reactions: No Hx Malignant Hyperthermia: No Meds Allergies/Adverse Reactions: Allergies Allergy/AdvReac Type Severity Reaction Status Date / Time No Known Allergies Allergy Verified 10/27/16 21:00 - Medications Medications: Current Medications Acetaminophen (Tylenol 325mg Tab) 325 mg PO Q4 PRN PRN Reason: pain1-3 Amlodipine Besylate (Norvasc) 10 mg PO DAILY [facility] Last Admin: 10/31/16 09:50 Dose: 10 mg Atorvastatin Calcium (Lipitor) 10 mg PO HS [facility] Last Admin: 10/30/16 22:12 Dose: 10 mg Benzocaine/Menthol (Cepacol Sore Throat) 1 jada PO Q3 PRN PRN Reason: Sore Throat Calcium Carbonate (Oscal) 500 mg PO DAILY [facility] Last Admin: 10/31/16 09:49 Dose: 500 mg Celecoxib (Celebrex) 200 mg PO Q12 [facility] Last Admin: 10/31/16 09:50 Dose: 200 mg Dextrose (Dextrose 50% Inj) 50 ml IVP ONCE PRN PRN Reason: Hypoglycemia Dextrose (Glutose 15) 15 gm PO ONCE PRN PRN Reason: Hypoglycemia Docusate Sodium (Colace) 100 mg PO TID [facility] Last Admin: 10/31/16 17:23 Dose: 100 mg Enoxaparin Sodium (Lovenox) 30 mg SC Q12 [facility] PRN Reason: Protocol Last Admin: 10/31/16 09:51 Dose: 30 mg Famotidine (Pepcid) 20 mg PO Q12 [facility] Last Admin: 10/31/16 09:51 Dose: 20 mg Hydrochlorothiazide (Hydrodiuril) 25 mg PO DAILY [facility] Last Admin: 10/31/16 09:51 Dose: 25 mg Losartan Potassium (Cozaar) 25 mg PO DAILY [facility] Last Admin: 10/31/16 09:49 Dose: 25 mg Metformin HCl (Glucophage) 500 mg PO BIDWM [facility] Last Admin: 10/31/16 17:23 Dose: 500 mg Oxycodone HCl (Oxycontin Extended Release Tab) 20 mg PO Q12 [facility] Last Admin: 10/31/16 09:50 Dose: 20 mg Oxycodone/Acetaminophen (Percocet 5/325 Mg Tab) 1 tab PO Q4 PRN PRN Reason: Pain, moderate (4-7) Stop: 11/03/16 07:57 Sennosides (Senokot Tab) 17.2 mg PO HS [facility] Last Admin: 10/30/16 22:12 Dose: Not Given Physical Exam - Constitutional Appears: Well, Non-toxic, No Acute Distress - Head Exam Head Exam: ATRAUMATIC, NORMAL INSPECTION, NORMOCEPHALIC - Eye Exam Eye Exam: EOMI - ENT Exam ENT Exam: Mucous Membranes Moist - Respiratory Exam Respiratory Exam: NORMAL BREATHING PATTERN - Cardiovascular Exam Cardiovascular Exam: REGULAR RHYTHM - GI/Abdominal Exam GI & Abdominal Exam: absent: Distended, Firm - Extremities Exam Extremities exam: Negative for: calf tenderness (some knee ecchymosis) - Neurological Exam Neurological exam: Alert, CN II-XII Intact, Oriented x3 - Psychiatric Exam Psychiatric exam: Normal Affect, Normal Mood Results - Vital Signs Recent Vital Signs: Last Vital Signs Temp 97.7 F 10/31/16 16:37 Pulse 81 10/31/16 16:37 Resp 20 10/31/16 16:37 BP 139/73 10/31/16 16:37 Pulse Ox 100 10/31/16 16:37 - Labs Labs: Laboratory Results - last 24 hr 10/30/16 10/31/16 10/31/16 20:23 06:34 11:08 POC Glucose (mg/dL) 205 H 193 H 295 H 10/31/16 16:20 POC Glucose (mg/dL) 203 H Assessment & Plan - Assessment and Plan (Free Text) Assessment: PT/OT to continue to help increase functional independence Pain: controlled Vascular: no evidence of DVT GI: No evidence of constipation or diarrhea Patient continues to be an excellent TCU rehabilitation candidate and will have continued focused PT, OT and recreational therapy to help facilitate a safe and appropriate d/c plan
[2016-11-01] MEDS: oxyCODONE 20 mg ER Tab (oxyCONTIN) PO SCH ×2 (08:42→20:19)
[2016-11-01] MEDS: Enoxaparin 30 mg Syringe SC SCH ×2 (08:43→20:19)
[2016-11-02] MEDS: Enoxaparin 30 mg Syringe SC SCH ×2 (08:52→21:33)
[2016-11-02] MEDS: oxyCODONE 20 mg ER Tab (oxyCONTIN) PO SCH ×2 (08:55→21:28)
[2016-11-02] MEDS: Oxycodone/Acetaminophen 5/325 mg Tab PO PRN (12:16)
[2016-11-03 06:26] LABS: BASO # 0.1 K/uL (0.0-0.2); BASO % 0.7 % (0.0-2.0); EOS # 0.4 K/uL (0.0-0.7); HEMATOCRIT 30.8 % (34.0-47.0); LYMPH % 31.6 % (20.0-40.0); MEAN CELL VOLUME 92.2 fl (81.0-99.0); MEAN CORPUSCULAR HGB CONC 33.6 g/dL (33.0-37.0); MEAN PLATELET VOLUME 7.7 fl (7.2-11.7); MONO # 1.2 K/uL (0.0-0.8); MONO % 12.6 % (0.0-10.0); NEUT # 4.8 K/uL (1.8-7.0); NEUT % 51.1 % (50.0-75.0); NRBC % 0.1 % (0.0-0.0); RED CELL DISTRIBUTION WIDTH 14.7 % (11.5-14.5); WHITE BLOOD COUNT 9.4 K/uL (4.8-10.8)
[2016-11-03] MEDS: Oxycodone/Acetaminophen 5/325 mg Tab PO PRN (06:27)
[2016-11-03 06:35] LABS: ALB/GLOB RATIO 1.1 (1.0-2.1); BILIRUBIN,TOTAL 0.7 mg/dl (0.2-1.3); CALCIUM 9.4 mg/dL (8.4-10.2); POTASSIUM 3.7 MMOL/L (3.6-5.0); TOTAL PROTEIN 7.2 G/DL (6.3-8.2)
[2016-11-03] MEDS: Enoxaparin 30 mg Syringe SC SCH ×2 (08:24→21:29)
[2016-11-03] MEDS: oxyCODONE 20 mg ER Tab (oxyCONTIN) PO SCH ×2 (08:30→20:39)
[2016-11-03 21:07] VITALS: O2SAT 100
[2016-11-04] MEDS: Oxycodone/Acetaminophen 5/325 mg Tab PO PRN ×2 (07:15→12:41)
[2016-11-04] MEDS: Enoxaparin 30 mg Syringe SC SCH (08:55)
[2016-11-04] MEDS: oxyCODONE 20 mg ER Tab (oxyCONTIN) PO SCH (08:59)
[2016-11-04 09:00] VITALS: BP 134/66; PULSE 77
[2016-11-04 09:09] VITALS: TEMP 98.2
--- NOTE | 2016-11-04 09:38 | CP.PCM.PN ---
Subjective - Date & Time of Evaluation Date of Evaluation: 10/30/16 Time of Evaluation: 09:45 - Subjective Subjective: Patient remains stable Still with elevated FBS Has no chest pain or SOB Afebrile. Objective - Vital Signs/Intake and Output Vital Signs (last 24 hours): Temp Pulse Resp BP Pulse Ox 98.2 F 77 20 134/66 100 11/04/16 09:08 11/04/16 09:08 11/04/16 09:08 11/04/16 09:08 11/04/16 09:08 - Medications Medications: Current Medications Acetaminophen (Tylenol 325mg Tab) 325 mg PO Q4 PRN PRN Reason: pain1-3 Amlodipine Besylate (Norvasc) 10 mg PO DAILY [facility] Last Admin: 11/04/16 08:58 Dose: 10 mg Atorvastatin Calcium (Lipitor) 10 mg PO HS [facility] Last Admin: 11/03/16 21:41 Dose: 10 mg Benzocaine/Menthol (Cepacol Sore Throat) 1 jada PO Q3 PRN PRN Reason: Sore Throat Last Admin: 11/04/16 08:57 Dose: 1 jada Calcium Carbonate (Oscal) 500 mg PO DAILY [facility] Last Admin: 11/04/16 08:55 Dose: 500 mg Celecoxib (Celebrex) 200 mg PO Q12 [facility] Last Admin: 11/04/16 08:55 Dose: 200 mg Dextrose (Dextrose 50% Inj) 50 ml IVP ONCE PRN PRN Reason: Hypoglycemia Dextrose (Glutose 15) 15 gm PO ONCE PRN PRN Reason: Hypoglycemia Docusate Sodium (Colace) 100 mg PO TID [facility] Last Admin: 11/04/16 08:56 Dose: 100 mg Enoxaparin Sodium (Lovenox) 30 mg SC Q12 [facility] PRN Reason: Protocol Last Admin: 11/04/16 08:55 Dose: 30 mg Famotidine (Pepcid) 20 mg PO Q12 [facility] Last Admin: 11/04/16 08:56 Dose: 20 mg Hydrochlorothiazide (Hydrodiuril) 25 mg PO DAILY [facility] Last Admin: 11/04/16 08:57 Dose: 25 mg Losartan Potassium (Cozaar) 25 mg PO DAILY [facility] Last Admin: 11/04/16 08:57 Dose: 25 mg Metformin HCl (Glucophage) 500 mg PO BIDWM [facility] Last Admin: 11/04/16 08:56 Dose: 500 mg Oxycodone HCl (Oxycontin Extended Release Tab) 20 mg PO Q12 [facility] Last Admin: 11/04/16 08:59 Dose: Not Given Oxycodone/Acetaminophen (Percocet 5/325 Mg Tab) 1 tab PO Q4 PRN PRN Reason: Pain, moderate (4-7) Stop: 11/07/16 07:04 Last Admin: 11/04/16 07:15 Dose: 1 tab Sennosides (Senokot Tab) 17.2 mg PO HS [facility] Last Admin: 11/03/16 21:41 Dose: Not Given Sitagliptin Phosphate (Januvia) 100 mg PO DAILY [facility] Last Admin: 11/04/16 08:59 Dose: 100 mg - Labs Labs: 11/03/16 05:50 11/03/16 05:50 - Head Exam Head Exam: NORMAL INSPECTION - Eye Exam Eye Exam: Normal appearance - ENT Exam ENT Exam: Mucous Membranes Moist - Respiratory Exam Respiratory Exam: NORMAL BREATHING PATTERN - Cardiovascular Exam Cardiovascular Exam: REGULAR RHYTHM - GI/Abdominal Exam GI & Abdominal Exam: Normal Bowel Sounds - Neurological Exam Neurological Exam: Awake, Oriented x3 - Psychiatric Exam Psychiatric exam: Normal Mood Assessment and Plan (1) Status post total knee replacement, left Status: Acute (2) Diabetes mellitus type 2 in obese Status: Acute (3) Gait difficulty Status: Acute (4) Hyperlipidemia Status: Acute (5) Hypertension Status: Acute - Assessment and Plan (Free Text) Plan: Cont meds increase metformin to 1000 bid januvia may add pioglitazone cont painmeds cont PT.
--- NOTE | 2016-11-04 09:40 | CP.PCM.PN ---
Subjective - Date & Time of Evaluation Date of Evaluation: 10/31/16 Time of Evaluation: 10:00 - Subjective Subjective: Patient is stable Has no chest pain or SOB Has minimal pain on the left knee and left thigh Wound is healing well. Objective - Vital Signs/Intake and Output Vital Signs (last 24 hours): Temp Pulse Resp BP Pulse Ox 98.2 F 77 20 134/66 100 11/04/16 09:08 11/04/16 09:08 11/04/16 09:08 11/04/16 09:08 11/04/16 09:08 - Medications Medications: Current Medications Acetaminophen (Tylenol 325mg Tab) 325 mg PO Q4 PRN PRN Reason: pain1-3 Amlodipine Besylate (Norvasc) 10 mg PO DAILY [facility] Last Admin: 11/04/16 08:58 Dose: 10 mg Atorvastatin Calcium (Lipitor) 10 mg PO HS [facility] Last Admin: 11/03/16 21:41 Dose: 10 mg Benzocaine/Menthol (Cepacol Sore Throat) 1 jada PO Q3 PRN PRN Reason: Sore Throat Last Admin: 11/04/16 08:57 Dose: 1 jada Calcium Carbonate (Oscal) 500 mg PO DAILY [facility] Last Admin: 11/04/16 08:55 Dose: 500 mg Celecoxib (Celebrex) 200 mg PO Q12 [facility] Last Admin: 11/04/16 08:55 Dose: 200 mg Dextrose (Dextrose 50% Inj) 50 ml IVP ONCE PRN PRN Reason: Hypoglycemia Dextrose (Glutose 15) 15 gm PO ONCE PRN PRN Reason: Hypoglycemia Docusate Sodium (Colace) 100 mg PO TID [facility] Last Admin: 11/04/16 08:56 Dose: 100 mg Enoxaparin Sodium (Lovenox) 30 mg SC Q12 [facility] PRN Reason: Protocol Last Admin: 11/04/16 08:55 Dose: 30 mg Famotidine (Pepcid) 20 mg PO Q12 [facility] Last Admin: 11/04/16 08:56 Dose: 20 mg Hydrochlorothiazide (Hydrodiuril) 25 mg PO DAILY [facility] Last Admin: 11/04/16 08:57 Dose: 25 mg Losartan Potassium (Cozaar) 25 mg PO DAILY [facility] Last Admin: 11/04/16 08:57 Dose: 25 mg Metformin HCl (Glucophage) 500 mg PO BIDWM [facility] Last Admin: 11/04/16 08:56 Dose: 500 mg Oxycodone HCl (Oxycontin Extended Release Tab) 20 mg PO Q12 [facility] Last Admin: 11/04/16 08:59 Dose: Not Given Oxycodone/Acetaminophen (Percocet 5/325 Mg Tab) 1 tab PO Q4 PRN PRN Reason: Pain, moderate (4-7) Stop: 11/07/16 07:04 Last Admin: 11/04/16 07:15 Dose: 1 tab Sennosides (Senokot Tab) 17.2 mg PO HS [facility] Last Admin: 11/03/16 21:41 Dose: Not Given Sitagliptin Phosphate (Januvia) 100 mg PO DAILY [facility] Last Admin: 11/04/16 08:59 Dose: 100 mg - Labs Labs: 11/03/16 05:50 11/03/16 05:50 - Head Exam Head Exam: NORMAL INSPECTION - Eye Exam Eye Exam: Normal appearance - ENT Exam ENT Exam: Mucous Membranes Moist - Respiratory Exam Respiratory Exam: Clear to Ausculation Bilateral - Cardiovascular Exam Cardiovascular Exam: REGULAR RHYTHM - GI/Abdominal Exam GI & Abdominal Exam: Normal Bowel Sounds - Neurological Exam Neurological Exam: CN II-XII Intact, Normal Gait, Oriented x3 Assessment and Plan (1) Status post total knee replacement, left Status: Acute (2) Diabetes mellitus type 2 in obese Status: Acute (3) Gait difficulty Status: Acute (4) Hyperlipidemia Status: Acute (5) Hypertension Status: Acute - Assessment and Plan (Free Text) Plan: Cont med Cont tx Cont PT pain meds
--- NOTE | 2016-11-04 09:42 | CP.PCM.PN ---
Subjective - Date & Time of Evaluation Date of Evaluation: 11/01/16 Time of Evaluation: 10:00 - Subjective Subjective: Patient is stable Has no chest pain or SOB afbeirle still with elevated FBS Objective - Vital Signs/Intake and Output Vital Signs (last 24 hours): Temp Pulse Resp BP Pulse Ox 98.2 F 77 20 134/66 100 11/04/16 09:08 11/04/16 09:08 11/04/16 09:08 11/04/16 09:08 11/04/16 09:08 - Medications Medications: Current Medications Acetaminophen (Tylenol 325mg Tab) 325 mg PO Q4 PRN PRN Reason: pain1-3 Amlodipine Besylate (Norvasc) [address] [facility] Last Admin: 11/04/16 08:58 Dose: 10 mg Atorvastatin Calcium (Lipitor) [address] [facility] Last Admin: 11/03/16 21:41 Dose: 10 mg Benzocaine/Menthol (Cepacol Sore Throat) 1 jada PO Q3 PRN PRN Reason: Sore Throat Last Admin: 11/04/16 08:57 Dose: 1 jada Calcium Carbonate (Oscal) [address] [facility] Last Admin: 11/04/16 08:55 Dose: 500 mg Celecoxib (Celebrex) [address] [facility] Last Admin: 11/04/16 08:55 Dose: 200 mg Dextrose (Dextrose 50% Inj) 50 ml IVP ONCE PRN PRN Reason: Hypoglycemia Dextrose (Glutose 15) 15 gm PO ONCE PRN PRN Reason: Hypoglycemia Docusate Sodium (Colace) [address] [facility] Last Admin: 11/04/16 08:56 Dose: 100 mg Enoxaparin Sodium (Lovenox) [address] [facility] PRN Reason: Protocol Last Admin: 11/04/16 08:55 Dose: 30 mg Famotidine (Pepcid) [address] [facility] Last Admin: 11/04/16 08:56 Dose: 20 mg Hydrochlorothiazide (Hydrodiuril) [address] [facility] Last Admin: 11/04/16 08:57 Dose: 25 mg Losartan Potassium (Cozaar) [address] [facility] Last Admin: 11/04/16 08:57 Dose: 25 mg Metformin HCl (Glucophage) [address] [facility] Last Admin: 11/04/16 08:56 Dose: 500 mg Oxycodone HCl (Oxycontin Extended Release Tab) [address] [facility] Last Admin: 11/04/16 08:59 Dose: Not Given Oxycodone/Acetaminophen (Percocet 5/325 Mg Tab) 1 tab PO Q4 PRN PRN Reason: Pain, moderate (4-7) Stop: 11/07/16 07:04 Last Admin: 11/04/16 07:15 Dose: 1 tab Sennosides (Senokot Tab) 17.[address] [facility] Last Admin: 11/03/16 21:41 Dose: Not Given Sitagliptin Phosphate (Januvia) [address] [facility] Last Admin: 11/04/16 08:59 Dose: 100 mg - Labs Labs: 11/03/16 05:50 11/03/16 05:50 - Head Exam Head Exam: NORMAL INSPECTION - Eye Exam Eye Exam: Normal appearance - ENT Exam ENT Exam: Mucous Membranes Moist - Respiratory Exam Respiratory Exam: Clear to Ausculation Bilateral - Cardiovascular Exam Cardiovascular Exam: REGULAR RHYTHM - GI/Abdominal Exam GI & Abdominal Exam: Normal Bowel Sounds - Neurological Exam Neurological Exam: Awake, Oriented x3 - Psychiatric Exam Psychiatric exam: Normal Mood Assessment and Plan (1) Status post total knee replacement, left Status: Acute (2) Diabetes mellitus type 2 in obese Status: Acute (3) Gait difficulty Status: Acute (4) Hyperlipidemia Status: Acute (5) Hypertension Status: Acute - Assessment and Plan (Free Text) Plan: Cont meds Con ttx Cont PT pain meds. adjust po hypoglycemics
--- NOTE | 2016-11-04 09:43 | CP.PCM.PN ---
Subjective - Date & Time of Evaluation Date of Evaluation: 11/02/16 Time of Evaluation: 09:40 - Subjective Subjective: Patient remains stable Doing well with PT Still with some swelling on the left knee accuchecks are better. Objective - Vital Signs/Intake and Output Vital Signs (last 24 hours): Temp Pulse Resp BP Pulse Ox 98.2 F 77 20 134/66 100 11/04/16 09:08 11/04/16 09:08 11/04/16 09:08 11/04/16 09:08 11/04/16 09:08 - Medications Medications: Current Medications Acetaminophen (Tylenol 325mg Tab) 325 mg PO Q4 PRN PRN Reason: pain1-3 Amlodipine Besylate (Norvasc) 10 mg PO DAILY [facility] Last Admin: 11/04/16 08:58 Dose: 10 mg Atorvastatin Calcium (Lipitor) 10 mg PO HS [facility] Last Admin: 11/03/16 21:41 Dose: 10 mg Benzocaine/Menthol (Cepacol Sore Throat) 1 jada PO Q3 PRN PRN Reason: Sore Throat Last Admin: 11/04/16 08:57 Dose: 1 jada Calcium Carbonate (Oscal) 500 mg PO DAILY [facility] Last Admin: 11/04/16 08:55 Dose: 500 mg Celecoxib (Celebrex) 200 mg PO Q12 [facility] Last Admin: 11/04/16 08:55 Dose: 200 mg Dextrose (Dextrose 50% Inj) 50 ml IVP ONCE PRN PRN Reason: Hypoglycemia Dextrose (Glutose 15) 15 gm PO ONCE PRN PRN Reason: Hypoglycemia Docusate Sodium (Colace) 100 mg PO TID [facility] Last Admin: 11/04/16 08:56 Dose: 100 mg Enoxaparin Sodium (Lovenox) 30 mg SC Q12 [facility] PRN Reason: Protocol Last Admin: 11/04/16 08:55 Dose: 30 mg Famotidine (Pepcid) 20 mg PO Q12 [facility] Last Admin: 11/04/16 08:56 Dose: 20 mg Hydrochlorothiazide (Hydrodiuril) 25 mg PO DAILY [facility] Last Admin: 11/04/16 08:57 Dose: 25 mg Losartan Potassium (Cozaar) 25 mg PO DAILY [facility] Last Admin: 11/04/16 08:57 Dose: 25 mg Metformin HCl (Glucophage) 500 mg PO BIDWM [facility] Last Admin: 11/04/16 08:56 Dose: 500 mg Oxycodone HCl (Oxycontin Extended Release Tab) 20 mg PO Q12 [facility] Last Admin: 11/04/16 08:59 Dose: Not Given Oxycodone/Acetaminophen (Percocet 5/325 Mg Tab) 1 tab PO Q4 PRN PRN Reason: Pain, moderate (4-7) Stop: 11/07/16 07:04 Last Admin: 11/04/16 07:15 Dose: 1 tab Sennosides (Senokot Tab) 17.2 mg PO HS [facility] Last Admin: 11/03/16 21:41 Dose: Not Given Sitagliptin Phosphate (Januvia) 100 mg PO DAILY [facility] Last Admin: 11/04/16 08:59 Dose: 100 mg - Labs Labs: 11/03/16 05:50 11/03/16 05:50 - Head Exam Head Exam: NORMAL INSPECTION - Eye Exam Eye Exam: Normal appearance - ENT Exam ENT Exam: Mucous Membranes Moist - Respiratory Exam Respiratory Exam: Clear to Ausculation Bilateral - Cardiovascular Exam Cardiovascular Exam: REGULAR RHYTHM - GI/Abdominal Exam GI & Abdominal Exam: Normal Bowel Sounds - Neurological Exam Neurological Exam: Awake, CN II-XII Intact, Oriented x3 Assessment and Plan (1) Status post total knee replacement, left Status: Acute (2) Diabetes mellitus type 2 in obese Status: Acute (3) Gait difficulty Status: Acute (4) Hyperlipidemia Status: Acute (5) Hypertension Status: Acute - Assessment and Plan (Free Text) Plan: Con meds Con ttx Cont PT Pain meds
--- NOTE | 2016-11-04 09:45 | CP.PCM.PN ---
Subjective - Date & Time of Evaluation Date of Evaluation: 11/03/16 Time of Evaluation: 09:30 - Subjective Subjective: Patient has been doing well Has slight pain on the left thigh just above the TKR. Otherwise doing well. Objective - Vital Signs/Intake and Output Vital Signs (last 24 hours): Temp Pulse Resp BP Pulse Ox 98.2 F 77 20 134/66 100 11/04/16 09:08 11/04/16 09:08 11/04/16 09:08 11/04/16 09:08 11/04/16 09:08 - Medications Medications: Current Medications Acetaminophen (Tylenol 325mg Tab) 325 mg PO Q4 PRN PRN Reason: pain1-3 Amlodipine Besylate (Norvasc) 10 mg PO DAILY [facility] Last Admin: 11/04/16 08:58 Dose: 10 mg Atorvastatin Calcium (Lipitor) 10 mg PO HS [facility] Last Admin: 11/03/16 21:41 Dose: 10 mg Benzocaine/Menthol (Cepacol Sore Throat) 1 jada PO Q3 PRN PRN Reason: Sore Throat Last Admin: 11/04/16 08:57 Dose: 1 jada Calcium Carbonate (Oscal) 500 mg PO DAILY [facility] Last Admin: 11/04/16 08:55 Dose: 500 mg Celecoxib (Celebrex) 200 mg PO Q12 [facility] Last Admin: 11/04/16 08:55 Dose: 200 mg Dextrose (Dextrose 50% Inj) 50 ml IVP ONCE PRN PRN Reason: Hypoglycemia Dextrose (Glutose 15) 15 gm PO ONCE PRN PRN Reason: Hypoglycemia Docusate Sodium (Colace) 100 mg PO TID [facility] Last Admin: 11/04/16 08:56 Dose: 100 mg Enoxaparin Sodium (Lovenox) 30 mg SC Q12 [facility] PRN Reason: Protocol Last Admin: 11/04/16 08:55 Dose: 30 mg Famotidine (Pepcid) 20 mg PO Q12 [facility] Last Admin: 11/04/16 08:56 Dose: 20 mg Hydrochlorothiazide (Hydrodiuril) 25 mg PO DAILY [facility] Last Admin: 11/04/16 08:57 Dose: 25 mg Losartan Potassium (Cozaar) 25 mg PO DAILY [facility] Last Admin: 11/04/16 08:57 Dose: 25 mg Metformin HCl (Glucophage) 500 mg PO BIDWM [facility] Last Admin: 11/04/16 08:56 Dose: 500 mg Oxycodone HCl (Oxycontin Extended Release Tab) 20 mg PO Q12 [facility] Last Admin: 11/04/16 08:59 Dose: Not Given Oxycodone/Acetaminophen (Percocet 5/325 Mg Tab) 1 tab PO Q4 PRN PRN Reason: Pain, moderate (4-7) Stop: 11/07/16 07:04 Last Admin: 11/04/16 07:15 Dose: 1 tab Sennosides (Senokot Tab) 17.2 mg PO HS [facility] Last Admin: 11/03/16 21:41 Dose: Not Given Sitagliptin Phosphate (Januvia) 100 mg PO DAILY [facility] Last Admin: 11/04/16 08:59 Dose: 100 mg - Labs Labs: 11/03/16 05:50 11/03/16 05:50 - Head Exam Head Exam: NORMAL INSPECTION - Eye Exam Eye Exam: Normal appearance - Respiratory Exam Respiratory Exam: Clear to Ausculation Bilateral - Cardiovascular Exam Cardiovascular Exam: REGULAR RHYTHM - GI/Abdominal Exam GI & Abdominal Exam: Normal Bowel Sounds - Neurological Exam Neurological Exam: Awake, CN II-XII Intact, Oriented x3 Assessment and Plan (1) Status post total knee replacement, left Status: Acute (2) Diabetes mellitus type 2 in obese Status: Acute (3) Gait difficulty Status: Acute (4) Hyperlipidemia Status: Acute (5) Hypertension Status: Acute - Assessment and Plan (Free Text) Plan: Con tmeds Con ttx Cont PT pain meds adjust meds
--- NOTE | 2016-11-04 09:49 | CP.PCM.DIS ---
Provider - Provider Date of Admission: 10/27/16 18:57 Attending physician: Wally Wallace MD Primary care physician: Micah Madrid MD Time Spent in preparation of Discharge (in minutes): 30 Diagnosis - Discharge Diagnosis (1) Status post total knee replacement, left Status: Acute (2) Diabetes mellitus type 2 in obese Status: Acute (3) Gait difficulty Status: Acute (4) Hyperlipidemia Status: Acute (5) Hypertension Status: Acute Hospital Course - Lab Results Lab Results: Most Recent Lab Values WBC 9.4 K/uL (4.8-10.8) 11/03/16 05:50 RBC 3.34 Mil/uL (3.80-5.20) L 11/03/16 05:50 Hgb 10.4 g/dL (12.0-16.0) L 11/03/16 05:50 Hct 30.8 % (34.0-47.0) L 11/03/16 05:50 MCV 92.2 fl (81.0-99.0) 11/03/16 05:50 MCH 31.0 pg (27.0-31.0) 11/03/16 05:50 MCHC 33.6 g/dL (33.0-37.0) 11/03/16 05:50 RDW 14.7 % (11.5-14.5) H 11/03/16 05:50 Plt Count 319 K/uL (130-400) D 11/03/16 05:50 MPV 7.7 fl (7.2-11.7) 11/03/16 05:50 Neut % (Auto) 51.1 % (50.0-75.0) 11/03/16 05:50 Lymph % (Auto) 31.6 % (20.0-40.0) 11/03/16 05:50 [place] % (Auto) 12.6 % (0.0-10.0) H 11/03/16 05:50 Eos % (Auto) 4.0 % (0.0-4.0) 11/03/16 05:50 Baso % (Auto) 0.7 % (0.0-2.0) 11/03/16 05:50 Neut # 4.8 K/uL (1.8-7.0) 11/03/16 05:50 Lymph # 3.0 K/uL (1.0-4.3) 11/03/16 05:50 [place] # 1.2 K/uL (0.0-0.8) H 11/03/16 05:50 Eos # 0.4 K/uL (0.0-0.7) 11/03/16 05:50 Baso # 0.1 K/uL (0.0-0.2) 11/03/16 05:50 Sodium 136 mmol/l (132-148) 11/03/16 05:50 Potassium 3.7 MMOL/L (3.6-5.0) 11/03/16 05:50 Chloride 96 mmol/L (98-107) L 11/03/16 05:50 Carbon Dioxide 28 mmol/L (22-30) 11/03/16 05:50 Anion Gap 16 (10-20) 11/03/16 05:50 BUN 30 mg/dl (7-17) H 11/03/16 05:50 Creatinine 1.2 mg/dL (0.7-1.2) 11/03/16 05:50 Est GFR ( Amer) 54 11/03/16 05:50 Est GFR (Non-Af Amer) 44 11/03/16 05:50 POC Glucose (mg/dL) 175 mg/dL (65-110) H 11/04/16 05:41 Random Glucose 169 mg/dL (65-105) H 11/03/16 05:50 Calcium 9.4 mg/dL (8.4-10.2) 11/03/16 05:50 Total Bilirubin 0.7 mg/dl (0.2-1.3) 11/03/16 05:50 AST 51 U/L (14-36) H 11/03/16 05:50 ALT 50 U/L (9-52) 11/03/16 05:50 Alkaline Phosphatase 110 U/L (38-126) 11/03/16 05:50 Total Protein 7.2 G/DL (6.3-8.2) 11/03/16 05:50 Albumin 3.8 g/dL (3.5-5.0) 11/03/16 05:50 Globulin 3.4 gm/dL (2.2-3.9) 11/03/16 05:50 Albumin/Globulin Ratio 1.1 (1.0-2.1) 11/03/16 05:50 - Hospital Course Hospital Course: This is a 71 y/o female admitted for gait dysfunction after left TKR. She has a hx of progressive knee pain from OA. Has a hx of HTN and DM 2. Discharge Exam - Head Exam Head Exam: NORMAL INSPECTION - Eye Exam Eye Exam: Normal appearance - Respiratory Exam Respiratory Exam: NORMAL BREATHING PATTERN - Cardiovascular Exam Cardiovascular Exam: REGULAR RHYTHM - GI/Abdominal Exam GI & Abdominal Exam: Normal Bowel Sounds - Extremities Exam Extremities exam: full ROM Additional comments: slight tenderness on the anterior left thigh - Neurological Exam Neurological exam: CN II-XII Intact, Oriented x3, Reflexes Normal - Psychiatric Exam Psychiatric exam: Normal Mood - Skin Skin Exam: Intact Discharge Plan - Follow Up Plan Condition: GOOD Disposition: HOME/ ROUTINE Additional Instructions: Rx given advised follow up with Dr Farrar in 1 to 2 weeks. Referrals: Micah Madrid MD [Primary Care Provider] -
== END 2016-11-04 14:45 | disposition home or self-care (01) | DRG 561 ==
LOC: H.TCU 18:57
PROVIDERS: ADMIT Family Medicine; ATTEND Family Medicine
PROC: F07M6FZ Therapeutic Exercise Treatment of Musculoskeletal System - Whole Body using Assistive, Adaptive, Supportive or Protective Equipment (ICD-10-PCS; principal; 2016-10-27)
PROC: F07Z9FZ Gait Training/Functional Ambulation Treatment using Assistive, Adaptive, Supportive or Protective Equipment (ICD-10-PCS; 2016-10-27)
PROC: F08Z4FZ Home Management Treatment using Assistive, Adaptive, Supportive or Protective Equipment (ICD-10-PCS; 2016-10-27)
DX: Z47.1 Aftercare following joint replacement surgery (principal); E11.9 Type 2 diabetes mellitus without complications; R26.81 Unsteadiness on feet; I10 Essential (primary) hypertension; Z96.652 Presence of left artificial knee joint; E66.9 Obesity, unspecified; E78.00 Pure hypercholesterolemia, unspecified; E78.5 Hyperlipidemia, unspecified; Z86.73 Personal history of transient ischemic attack (TIA), and cerebral infarction without residual deficits; Z85.3 Personal history of malignant neoplasm of breast; M19.90 Unspecified osteoarthritis, unspecified site; M25.562 Pain in left knee